=== PATIENT | male | born 1990 | race Caucasian/White ===

== ENCOUNTER → 2019-03-03 11:26 | Outpatient (CLI) | payer MEDICAID | END | disposition home or self-care (01) | LOC: D.CT 11:26 | PROVIDERS: ATTEND Nurse Practitioner | DX: M79.632 Pain in left forearm (principal) ==

== ENCOUNTER 2019-04-12 11:36 | Day surgery (SDC) | payer MEDICAID ==
[~2019-04-12] VITALS: Ht 193 cm; Wt 99.8 kg
[~2019-04-12 11:36] MED LIST: ADDERALL XR 1515 M1 PO; DURICEF500 MG PO; HYDROCODON-ACE1 EAC7 PO; PERCOCET 5-3251 TAB PO
[2019-04-12 12:07] VITALS: Ht 193 cm; Wt 99.8 kg
[2019-04-12] MEDS ORDERED: DURICEF500 MG PO (14:54)
[2019-04-12] MEDS ORDERED: PERCOCET 10-321 EAC1 PO (14:55)
--- NOTE | 2019-04-12 15:56 | NUR ---
1550-REC'D FROM RR. AWAKE AND ALERT.LEFT ARM IN SLING,ELEVATED AND ICE APPLIED. ABLE TO WIGGLE DIGITS. SLIGHT SENSATION TO THUMB AND INDEX FINGER. CAP REFILL WNL. VSS. NO PAIN. REVIEWED DISCHARGE CRITERIA. CL IN EASY REACH. SPOUSE AT BEDSIDE. FULL LIQUID TRAY SET UP.
--- NOTE | 2019-04-12 16:22 | NUR ---
1620-TOLERATED FOOD TRAY. VSS.AMBULATED TO RESTROOM WITH SLOW STEADY GAIT. ABLE TO VOID WITHOUT COMPLICATIONS.VSS. REPORTS SLIGHT DISCOMFORT TO SURGICAL SITE. SKIN WARM TO TOUCH. CAP REFILL WNL.
--- NOTE | 2019-04-12 16:24 | NUR ---
1625-REMOVED IV FROM RIGHT HAND WITH CATH INTACT,DISPOSED INTO SHARPS. COVERED WITH GUAZE,SECURED WITH TAPE.
--- NOTE | 2019-04-12 16:47 | NUR ---
1645-REVIEWED POST OPERATIVE INSTRUCTIONS AND FOLLOW UP.VERBALIZED UNDERSTANDING.
--- NOTE | 2019-04-12 16:49 | NUR ---
1650-ESCORTED OUT VIA W/C WITH SPOUSE TO DRIVE HOME.
--- NOTE | 2019-04-13 07:59 | OP ---
PATIENT NAME: ARMANI LUNSFORD MEDICAL RECORD: [id number] :88 LOCATION:[facility] ADMISSION DATE: SURGEON: ESTIVEN LESTER DO DATE OF OPERATION: 04/12/2019 PROCEDURE PERFORMED: Left radial shaft open reduction internal fixation. PREOPERATIVE DIAGNOSIS: Displaced left radial shaft fracture. POSTOPERATIVE DIAGNOSIS: Displaced left radial shaft fracture. INDICATIONS: Mr. Lunsford is a 28-year-old male who had his hardware removed a couple of weeks ago with left radial shaft. When he followed up in the clinic, we got an x-ray. The hardware had been in there for quite a few years. I did have to get out with an osteotome and warned him of the risk of fracture. I did x-ray and he did have a small crack. During surgery, want to took it out, but ranged it through and did not displace. I put him in a sugar-tong splint, he showed to clinic, got an x-ray and it had displaced. I informed him that we need to put a plate on that or he would not heal correctly and I apologized that it displaced. He said he may have moved it while he had the block and displaced that he did not know for sure from the previous surgery. I informed him of the risks including infection, refracture bleeding, damage to nerves including the radial sensory nerve, loss of motor function, increased pain, and he signed the consent. SURGEON: Estiven Lester DO SURGEON SHIRRING TENDER Osiel Ward certified surgical first grade teacher. He assisted with retraction and closing. DESCRIPTION OF PROCEDURE: The patient was taken to the operative suite, given a block by anesthesia in the preoperative area, placed in supine position, given general anesthetic. Two grams Ancef and sedated and LMA was placed. Left upper extremity was prepped and draped in sterile fashion. Time out was performed, everyone was in agreement as to the correct site, side, the patient, and the procedure. We then exsanguinated the left upper extremity. Tourniquet was inflated to 250 mmHg, was up for 40 minutes and then went through the previous incision and a complete careful dissection down to the radial shaft and reduced it, put the plate on, clamped the plate into place and put 2 screws on either side of the fracture and then got x-rays and ensured there was good reduction and then put 2 more screws distally and proximally. Then, once this was in good position on x-ray, AP and lateral, let the tourniquet down, irrigated out and closed the skin with 2-0 Vicryl in interrupted fashion. Prineo glue on the skin. He was then dressed with Adaptic, 4 x 4s, and cast padding and put in a sugar-tong splint and secured with an Henrik wrap, awakened and taken to recovery in stable condition. ESTIMATED BLOOD LOSS: Minimal. SPECIMENS: None. TRANSINT:[id number] Voice Confirmation ID: [id number] DOCUMENT ID: [id number] OPERATIVE REPORT [id number] ARMANI LUNSFORD MICHAEL D, DO at 0759 CC: [id number] DICTATION DATE: 04/12/19 1500 POWER SYSTEM OPERATOR: 04/12/19 1746 [facility] 04/12/19 [id number] [place] [address]
== END 2019-04-12 16:50 | disposition home or self-care (01) ==
LOC: D.OPS 11:36 → D.PAN 13:00 → D.OPS 16:50
PROVIDERS: ATTEND Orthopaedic Surgery
DX: S52.302D Unspecified fracture of shaft of left radius, subsequent encounter for closed fracture with routine healing (principal)